=== PATIENT | male | born 2000 | race Caucasian/White ===

== ENCOUNTER 2023-02-26 14:48 | Emergency (ER) | payer SELFPAY | END 2023-02-26 16:18 | disposition home or self-care (01) | LOC: JD.ED 14:48 | DX: R07.0 Pain in throat (principal); G89.29 Other chronic pain | CPT/HCPCS: 99283 ==

== ENCOUNTER 2023-04-09 23:11 | Emergency (ER) | payer MEDICAID ==
[2023-04-10 00:47] LABS: CORONAVIRUS COVID-19 NAA NEGATIVE (NEGATIVE); INFLUENZA A NAA NEGATIVE (NEGATIVE); RESPIRATORY SYNCYTIAL VIR NAA NEGATIVE (NEGATIVE)
[2023-04-10] MEDS ORDERED: predniSONE 20 MG Tab PO ONE (01:42)
[2023-04-10] MEDS ORDERED: Famotidine 20 MG Tab PO ONE (01:42)
[2023-04-10] MEDS ORDERED: diphenhydrAMINE 50 MG Cap PO ONE (01:42)
== END 2023-04-10 06:36 | disposition home or self-care (01) ==
LOC: JD.ED 23:11
DX: J02.9 Acute pharyngitis, unspecified (principal); Z86.16 Personal history of COVID-19; Z72.0 Tobacco use; Z20.822 Contact with and (suspected) exposure to COVID-19
CPT/HCPCS: 0241U; 87651; 99283; A9270; J7512; Q0163